=== PATIENT | male | born 2000 | race African-American/Black ===

== ENCOUNTER 2019-08-03 13:12 | Emergency (ER) | payer OTHER ==
[~2019-08-03] VITALS: Ht 182.9 cm; Wt 65.5 kg
[2019-08-03] MEDS ORDERED: BACITRACIN 0.9 GM PACKET OINTMENT TP ONE (14:30)
[2019-08-03 14:56] VITALS: BP 128/72
== END 2019-08-03 15:25 | disposition home or self-care (01) ==
LOC: EMS 13:13
DX: L03.012 Cellulitis of left finger (principal); Z88.0 Allergy status to penicillin
CPT/HCPCS: 10060